=== PATIENT | female | born 1990 | race Caucasian/White ===

== ENCOUNTER 2017-06-16 20:56 | Inpatient (IN) ==
--- OUTSIDE RECORDS SUMMARY | 2017-06-16 21:02 | External Medical Summary | Continuity of Care Document ---
:1990 Author Organization [facility] [employer] [facility] Address [address] [place], [place] [id number] Phone Allergies, Adverse Reactions, Alerts Substance Reaction Severity Status Substance Type Unknown Medications Medication Instructions Dosage Effective Dates Status Comments (start - stop) Vitamin take 1 tablet by Not Available - Active tablet oral route every day Problems Condition Effective Dates (start - stop) Clinical Status Encntr for suprvsn of normal first - preg, third trimester 32 weeks gestation of - Pap Smear Screening, Cervix - Encntr for suprvsn of normal first - preg, first trimester 9 weeks gestation of - Matern care for oth or susp poor fetl - gr, 1st tri, unsp Encntr for suprvsn of normal first - preg, first trimester 13 weeks gestation of - Matern care for oth or susp poor fetl - gr, 2nd tri, unsp 19 weeks gestation of - Abnormal glucose complicating - Encntr for suprvsn of normal first - preg, second trimester 23 weeks gestation of - Encntr for suprvsn of normal first - preg, second trimester 19 weeks gestation of - Encntr for suprvsn of normal first - preg, second trimester 27 weeks gestation of - Encntr for suprvsn of normal first - preg, third trimester 30 weeks gestation of - Encntr for suprvsn of normal first - preg, third trimester 34 weeks gestation of - Procedures Procedure Date 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 Health SO, normal first 7 700 [address], preg, [place], [place], [email or web address] [place] [id number], weeks [facility] gestation of 120, tel:+[address] [place] [address], [id number] , [place]. tel: [phone] [facility] Encntr for Apr- Hernandes In Womens suprvsn of 9-201 Marie. Kelsey RIZZO, normal first 7 700 [address], preg, [place], [place], [email or web address] [place] [id number], weeks [facility] gestation of 120, tel:+21 Byron [phone], [id number] , [place]. tel: [phone] [facility] Mitchellntr for Apr-0 Hernandes Referring In Womens suprvsn of 5-201 Marie. Provider: Kelsey RIZZO, normal first 7 700 Marie Hernandes [address], preg, third Medical K, 700 [place], [place], [email or web address] [facility] [id number], weeks , [facility] [place] gestation of 120, Jeremy 120, tel:+21 Byron [place], [address] [place], [place], [id number]. , [place]. tel: tel: [phone] Associates [facility] Abnormal Dominik-2 Hernandes In Womens glucose 2-201 Marie. Kelsey RIZZO, complicating 7 700 [address], [place], [place], [place] [id number], Jeremy Vargas [place] 120, tel:[phone] Byron [address] [place], [id number] , [place]. tel: [phone] Judie Mitchellntr for Dominik-1 Hernandes In Womens suprvsn of 3- Marie. Health [place], normal first 7 700 [address], preg, second Medical [place], [place], Center [id number], weeks , Jeremy [place] gestation of 120, tel:[phone] Byron [address] [place], [id number] , [place]. tel: [phone] Judie [place] Encntr for May- Hernandes In Womens suprvsn of 7 Marie. Health [place], normal first 7 700 [address], preg, second Medical [place], [place], [email or web address] Center [id number], weeks , Jeremy [place] gestation of 120, tel:+21 Byron [address] [place], [id number] , [place]. tel: [phone] Judie [place] Encntr for Apr- [facility]es [facility] of Marie. Health [place], normal first 7 700 [address], preg, second [place], [place], [email or web address] Center [id number], weeks , Jeremy [place] gestation of 120, tel:+21 Byron [address] [place], [id number] , [place]. tel: [phone] Judie [place] Matern care Apr-1 Hernandes In Womens Ultrasound for oth or Marie. Health [place], susp poor 7 700 [address], fetl grth, [place], [place], 2nd tri, Center [id number], [email or web address] weeks , Jeremy [place] gestation of 120, tel:21 Byron [address] [place], [id number] , [place]. tel: [phone] Judie [place] Matern care Mar- Hernandes In Womens for oth or 0-201 Marie. Health SO, susp poor 7 700 [address], fetl grth, [place], [place], 1st tri, Center [id number], unspEncntr Dr Jeremy [place] for suprvsn 120, tel:[phone] of normal Byron, [id number] first preg, [place], first [id number] , [place]. weeks tel: gestation of [phone] Judie [place] Pap Smear Nov- Hernandes Referring In Womens Screening, 0-201 Marie. Provider: Kelsey RIZZO CervixEncntr 7 700 Marie Hernandes [address], for [facility] Medical K, 700 [place], [place], of [facility] Medical [id number], pregDr, Jeremy Center Dr FERREIRA first 120, Jeremy 120, tel:21 trimester9 Byron [place], [address] weeks [place], gestation of [id number]. , [place]. tel: tel: [phone] Family History Family Member Diagnosis Age At Onset No family history of Pulmonary Embolism Maternal Grandmother Ovarian Cancer No family history of Venous Thrombosis Mother Thyroid Disorder Father Kidney Cancer Paternal Grandmother Breast Cancer Immunizations Vaccine Date Status Comments Tdap completed Source: New Immunization Record Influenza, injectable, completed Source: New Immunization Record quadrivalent, preservative free, 3 yrs or older Payers Payer name Insurance type Covered libertarian ID Authorization(s) Aetna CI [id number] Aetna CI [id number] Aetna CI [id number] Social History Type Description Quantity Date Captured Alcohol Use Details No Caffeine Use Details Unknown Tobacco Use Status Unknown Smoking Status Never smoker Vital Signs Date / Height Weight BMI Pulse Blood Temperature Respiratory Body Head BMI Time: Rate Pressure Rate Surface Circumference percentile Area 155.20 27.4 119/74 2017 lbs 9 mm[Hg] 4:12 kg/m PM eter (2) Chief Complaint And Reason For Visit Unknown Chief Complaint And Reason For Visit Reason For Referral Reason For Referral Unknown Plan Of Care Date Type Action Status Appointment Emily Martell BOOKED Appointment Emily Matrell BOOKED Appointment Emily Martell BOOKED Appointment Emily Martell BOOKED Appointment Emily Martell BOOKED Future Order: Radiology Order Complete OB Ultrasound > 14 Ordered Weeks ([id number]) Date Type Problem Goal Intervention Status Start Date Unknown. History Of Present Illness Encounter Date Complaint History Of Present Illness This patient has no known history of present illness Functional Status Encounter Date Functional Assessment Cognitive Assessment Unknown Medications Administered Medication Instructions Dosage Effective Dates (start - stop) Status Comments Drug Treatment Unknown Instructions Date Instruction Additional Information gestational glucose lab screening indications for ultrasound influenza vaccine environmental / work hazards travel tobacco (ask, advise, assess, assist and arrange) alcohol illicit / recreational drugs use of any medications (including supplements, vitamins, herbs, OTC drugs) smoking counseling domestic violence seat belt use risk factors identified by history anticipated course of care nutrition and weight gain counseling, special diet toxoplasmosis precautions (cats / raw meat) HIV and other routine tests exercise genetic testing new ob handbook Zika virus assessment & precautions dentist, 25-35#
--- OUTSIDE RECORDS SUMMARY | 2017-06-16 21:02 | External Medical Summary | Continuity of Care Document ---
:1990 Author Organization [facility] [employer] [facility] Address [address] [place], [place] [address] Phone Allergies, Adverse Reactions, Alerts Substance Reaction Severity Status Substance Type Unknown Medications Medication Instructions Dosage Effective Dates Status Comments (start - stop) Vitamin take 1 tablet by Not Available - Active tablet oral route every day Problems Condition Effective Dates (start - stop) Clinical Status Encntr for suprvsn of normal first - preg, third trimester 30 weeks gestation of - Pap Smear Screening, [...] gestation of - Abnormal glucose complicating - 19 weeks gestation of - Encntr for suprvsn of normal first - preg, second trimester Encntr for suprvsn of normal first - preg, second trimester 23 weeks gestation of - Encntr for suprvsn of normal first - preg, second trimester 27 weeks gestation of - Encntr for suprvsn of normal first - preg, third trimester 32 weeks gestation of - Procedures Procedure Date Immuniz admnin, 1 vac, sngl/combo 19 Yrs + TDAP VACCINE >7 IM OB Visit No Charge Results Test Name Date and Time Measure Units Reference Range Abnormal Flag Comments Unknown Advance Directives Directive Yes / No Effective Date File Name Unknown Encounters Encounter Practice Location Reason(s) Diagnoses Date Provider Care Team Description For Visit Members [facility] Mitchellntr for Apr-1 Hernandes In Womens suprvsn of 9-201 Marie. Kelsey RIZZO, normal first 7 700 PO [address] preg, third Medical 1522, [facility], weeks gestation Jeremy Vargas, of 120, , [facility] [place], tel:[phone] , [place]. tel: [phone] [facility] Encntr for Asad-0 Hernandes Referring In Womens suprvsn of 5-201 Marie. Provider: Kelsey RIZZO, normal first 7 700 Marie Hernandes PO Box preg, third Medical K, 700 1522, [email or web address] [facility], weeks gestation [facility] [place], of 120, Jeremy 120, , Byron Craig, [facility], [place], tel:[phone]. , [place]. tel: tel: [phone] Associates [facility] Abnormal glucose Dominik-2 Hernandes In Womens complicating 2-201 Marie. Kelsey RIZZO, 7 700 PO [address] Medical [address], [place] [address] [place], 120, , [facility] [place], tel: [phone] , [place]. tel: [phone] [facility] Encntr for Dominik-1 Hernandes In Womens suprvsn of 3-201 Marie. Kelsey RIZZO, normal first 7 700 PO Box preg, second Medical 1522, [email or web address] [facility], weeks gestation Jeremy Vargas, of 120, [id number], [facility] [place], tel:[phone] , [place]. tel: [phone] Judie [place] Encntr for February-1 Hernandes In Womens suprvsn of 7-201 Marie. Health SO, normal first 7 700 PO Box preg, second Medical 1522, [id number] [facility], weeks gestation Jeremy Vargas, of 120, , [place], tel:[phone] , [place]. tel: [phone] Associates Byron 19 weeks Apr-1 Hernandes In Womens gestation of 9- Marie. Health SO, pregnancyEncntr 7 700 PO Box for suprvsn [facility] 1522, normal first [facility], preg, second Jeremy Vargas, trimester 120, , [place], tel:[phone] , [place]. tel: [phone] Associates [facility] Matern care for Apr-1 Hernandes In Womens Ultrasound oth or susp poor 9- Marie. Kelsey RIZZO, fetl grth, 2nd 7 700 PO [address] tri, [email or web address] Medical 1522, weeks gestation [facility], of Jeremy Vargas, 120, , [place], [place], tel:[phone] , [place]. tel: [phone] Judie [place] Matern care for Mar-1 Hernandes In Womens oth or susp poor 0-201 Marie. Health SO, fetl grlauren, 1st 7 700 PO Box tri, unspEncntr Medical 1522, for suprvsn of [facility], normal first Jeremy Vargas, preg, first 120, , [email or web address] [place], weeks gestation [place], tel: of , [place]. tel: [phone] [facility] Pap Smear Fe- Hernandes Referring In Womens Screening, 0-201 Marie. Provider: Health SO, CervixEncntr for 7 700 Marie Hernandes PO Box suprvsn of [facility] K, 700 1522, normal first Center [facility], preg, first , [facility] Dr VELARDE, trimester9 weeks 120, Jeremy 120, [id number], gestation of Byron [place], [place], tel:[phone]. , [place]. tel: tel: [phone] Family History Family Member Diagnosis Age At [...] older Payers Payer name Insurance type Covered green party ID Authorization(s) Aetna CI [id number] Aetna CI [id number] Aetna CI [id number] Social History Type Description Quantity Date Captured Alcohol Use Details No Caffeine Use Details Unknown Tobacco Use Status Unknown Smoking Status Never smoker Vital Signs Date / Height Weight BMI Pulse Blood Temperature Respiratory Body Head BMI Time: Rate Pressure Rate Surface Circumference percentile Area 153.10 27.1 118/74 lbs 2 mm[Hg] 5:45 kg/m PM eter (2) Chief Complaint And Reason For Visit Unknown Chief Complaint And Reason For Visit Reason For Referral Reason For Referral Unknown Plan Of Care Date Type Action Status Appointment Emily Martell BOOKED Appointment Emily Martell BOOKED Appointment Emily Martell BOOKED Appointment Emily Martell BOOKED Appointment Emily Martell BOOKED Appointment Emily Matrell BOOKED Future Order: Radiology Order Complete OB Ultrasound > 14 Ordered Weeks ([id number]) Date Type Problem Goal Intervention Status Start [...] smoking counseling domestic violence seat belt use genetic testing risk factors identified by history anticipated course of care nutrition and weight gain counseling, special diet toxoplasmosis precautions (cats / raw meat) HIV and other routine tests exercise new ob handbook Zika virus assessment & precautions dentist, 25-35#
--- OUTSIDE RECORDS SUMMARY | 2017-06-16 21:02 | External Medical Summary | Continuity of Care Document ---
:1990 Author Organization [facility] [facility] Address [address] [place], [place] [id number] Phone Allergies, Adverse Reactions, Alerts Substance Reaction Severity Status Substance Type Unknown Medications Medication Instructions Dosage Effective Dates Status Comments (start - stop) Vitamin take 1 tablet by Not Available - Active tablet oral route every day Problems Condition Effective Dates (start - stop) Clinical Status Encntr for suprvsn of normal first - preg, third trimester 34 weeks gestation of - Pap Smear Screening, [...] of normal first - preg, third trimester Encounter for screening of - mother 36 weeks gestation of - Encntr for suprvsn of normal first - preg, third trimester 32 weeks gestation of - Encntr for suprvsn of normal first - preg, third trimester 30 weeks gestation of - Procedures Procedure Date OB Visit No Charge Results Test Name Date and Time Measure Units Reference Range Abnormal Flag Comments Unknown Advance Directives Directive Yes / No Effective Date File Name Unknown Encounters Encounter Practice Location Reason(s) Diagnoses Date Provider Care Team Description For Visit Members [facility] Byron Mitchellntr for May-1 Hernandes In Womens suprvsn of normal 6-201 Marie. Health [place], first preg, third 7 700 PO Box trimesterEncounte Medical [address], r for [facility], screening of Jeremy Vargas, [email or web address] weeks 120, , gestation of [facility] [place], tel:[phone] , [place]. tel: [phone] Judie Mitchellntr for May-0 Hernandes In Womens suprvsn of normal 1-201 Marie. Kelsey RIZZO, first preg, third 7 700 PO Box [email or web address] weeks Medical 1522, gestation of [facility], Jeremy Vargas [place], 120, [id number], [place], tel:[phone] , [place]. tel:[phone] Judie Mitchellntr for Apr- Hernandes In Womens suprvsn of normal 9-201 Marie. Kelsey RIZZO, first preg, third 7 700 PO Box [email or web address] weeks Medical 1522, gestation of [facility], Jeremy Vargas [place], 120, [id number], [place], tel:[phone] , [place]. tel:[phone] Judie Mitchellntr for Apr-0 Hernandes Referring In Womens suprvsn of normal 5-201 Marie. Provider: Kelsey [place], first preg, third 7 700 Marie Hernandes [address] [email or web address] weeks Medical K, 700 1522, gestation of [facility], Dr [facility] [place], 120, Jeremy 120, , Byron [place], [place], [place], tel: [phone] [id number]. , [place]. tel: tel: [phone] Associates Byron Abnormal glucose Dominik-2 Hernandes In Womens complicating 2-201 Marie. Health PA, 7 700 PO Box Medical 1522, [facility], Jeremy Vargas, 120, , [facility] [place], tel:[phone] , [place]. tel: [phone] [facility] Encntr for Dominik-1 Hernandes In Womens suprvsn of normal 3-201 Marie. Health PA, first preg, 7 700 PO Box second Medical 1522, [id number] weeks [facility], gestation of Jeremy Vargas, 120, , [facility] [place], tel:[phone] , [place]. tel: [phone] [facility] Encntr for May-1 Hernandes In Womens suprvsn of normal 7-201 Marie. Health PA, first preg, 7 700 PO Box second Medical 1522, weeks [facility], gestation of Jeremy Vargas, 120, , [facility] [place], tel:[phone] , [place]. tel: [phone] [facility] Encntr for Apr-1 Hernandes In Womens suprvsn of normal 9-201 Marie. Health PA, first preg, 7 700 PO Box second Medical 1522, [email or web address] weeks [facility], gestation of Jeremy Vargas, 120, , [facility] [place], tel:[phone] , [place]. tel: [phone] Associates [facility] Matern care for Apr-1 Hernandes In Womens Ultrasound oth or susp poor 9-201 Marie. Health PA, fetl grth, 2nd 7 700 PO Box tri, [email or web address] weeks Medical 1522, gestation of [facility], Jeremy Vargas, 120, , [facility] [place], tel:[phone] , [place]. tel: [phone] Judie [place] Matern care for Dec- Hernandes In Womens oth or susp poor 0-201 Marie. Health SO, fetl grth, 1st 7 700 PO Box tri, unspEncntr Medical 1522, for suprvsn of [facility], normal first Jeremy Vargas, preg, first 120, [id number], [email or web address] weeks [place], gestation of [place], tel: [phone] , [place]. tel: [phone] Judie [place] Pap Smear Hernandes Referring In Womens Screening, 0-201 Marie. Provider: Health SO, CervixEncntr for 7 700 Marie Hernandes PO Box suprvsn of [facility] [place], 700 1522, first preg, first [facility], trimester9 weeks , [facility] Dr VELARDE, gestation of 120, Jeremy 120, [id number], Byron [place], [place], [place], tel: [phone]. , [place]. tel: tel: [phone] Family History Family Member Diagnosis Age At [...] type Covered libertarian ID Authorization(s) Aetna CI [id number] Aetna CI [id number] Aetna CI [id number] Social History Type Description Quantity Date Captured Alcohol Use Details No Caffeine Use Details Unknown Tobacco Use Status Unknown Smoking Status Never smoker Vital Signs Date / Height Weight BMI Pulse Blood Temperature Respiratory Body Head BMI Time: Rate Pressure Rate Surface Circumference percentile Area 157.00 27.8 112/72 -2017 lbs 1 mm[Hg] 3:56 kg/m PM eter (2) Chief Complaint And Reason For Visit Unknown Chief Complaint And Reason For Visit Reason For Referral Reason For Referral Unknown Plan Of Care Date Type Action Status Appointment Emily Martell BOOKED Appointment Emily Martell BOOKED Appointment Emily Martell BOOKED Appointment Emily Martell BOOKED Future Order: Radiology Order Complete OB Ultrasound > 14 Ordered Weeks ([id number]) Date Type Problem Goal Intervention Status Start Date Unknown. History Of Present Illness Encounter Date Complaint History Of Present Illness This patient has no known history of present illness Functional Status Encounter Date Functional Assessment Cognitive Assessment Unknown Medications Administered Medication Instructions Dosage Effective Dates (start - stop) Status Comments Drug Treatment Unknown Instructions Date Instruction Additional Information [facility] Appt card labor signs group B strep screening gestational glucose lab screening indications for ultrasound [...]
[2017-06-16] MEDS ORDERED: MAG-AL + SIM ORAL LIQUID 30ml PO PRN (21:19)
[2017-06-16] MEDS ORDERED: METHYLERGONOVINE 0.2 MG/ML INJECTION IM PRN (21:19)
[2017-06-16] MEDS ORDERED: ACETAMINOPHEN 500 MG TABLET PO PRN (21:19)
[2017-06-16] MEDS ORDERED: CARBOPROST 250 MCG/ML INJECTION IM PRN (21:19)
[2017-06-16] MEDS ORDERED: LIDOCAINE 1% (10mg/ml) 2mL INJ PF SDV ID PRN (21:19)
[2017-06-16] MEDS ORDERED: CALCIUM CARBONATE Chewable 500mg TABLET PO PRN (21:19)
[2017-06-16 21:29] VITALS: BMI 28.3
[2017-06-16] MEDS ORDERED: OXYTOCIN DRIP 30 UNIT/500 ML ML IV PRN (22:27)
[2017-06-16] MEDS ORDERED: D5LR 1,000 ML IV PRN (22:31)
[2017-06-16] MEDS: D5LR 1,000 ML IV PRN (22:46)
[2017-06-17] MEDS: LR 1,000 ML IV SCH ×2 (03:00→07:58)
[2017-06-17] MEDS: D5LR 1,000 ML IV PRN (07:40)
[2017-06-17] MEDS ORDERED: NALOXONE 0.4 MG/ML INJECTION IVP PRN (07:58)
[2017-06-17] MEDS ORDERED: ONDANSETRON 4 MG/2 ML INJECTION IVP PRN (07:58)
[2017-06-17] MEDS ORDERED: DiphenhydrAMINE 50 MG/ML INJECTION IVP PRN (07:58)
[2017-06-17] MEDS ORDERED: ROPIVACAINE 1% 10MG/ML INJ 200 MG, SUFentanil 50 MCG in NS 100 ML EPI PRN (07:58)
--- NOTE | 2017-06-17 07:58 | Anesthesia Preoperative Report ---
Anesthesia Epidural/Spinal Rec - Date and Time Date: 06/17/17 Preoperative Diagnosis: Procedure: Labor Epidural Plan: Epidural - Vital Signs Vital Signs: Temperature 97.9 F 06/16/17 21:40 Pulse Rate 93 06/16/17 21:40 Respiratory Rate 14 06/16/17 21:40 Blood Pressure 124/62 06/16/17 21:40 Pulse Oximetry 99 06/16/17 21:40 /Para: P:0 - Medictaions & Allergies Inpatient Medications: Current Medications Acetaminophen (Tylenol) 500 - 1,000 mg PO Q4H PRN PRN Reason: Pain Al Hydroxide/Mg Hydroxide (Maalox Plus) 30 ml PO Q3H PRN PRN Reason: Indigestion Calcium Carbonate (Tums) 500 - 1,000 mg PO Q2H PRN PRN Reason: Indigestion Carboprost Tromethamine (Hemabate) 250 mcg IM O PRN PRN Reason: .Downtime Dextrose/Lactated Ringer's (Dextrose 5%-Lactated Ringers) 1,000 mls @ 125 mls/ hr IV .Q8H PRN PRN Reason: Labor Last Admin: 06/17/17 07:40 Dose: 123 mls/hr Oxytocin (Pitocin Drip) 30 unit in 500 mls @ 2 mls/hr IV .Q24H PRN; Protocol PRN Reason: Induction/Augmentation Last Admin: 06/16/17 22:45 Dose: 2 mls/hr Dextrose/Lactated Ringer's (Dextrose 5%-Lactated Ringers) 1,000 mls @ 125 mls/ hr IV .Q8H PRN PRN Reason: Labor Lidocaine HCl (Xylocaine-Mpf 1% Vial) 0.2 mg ID O PRN PRN Reason: IV Start Methylergonovine Maleate (Methergine) 0.2 mg IM O PRN Misoprostol (Cytotec) 800 mcg [place] ONCE PRN Allergies/Adverse Reactions: Allergies Allergy/AdvReac Type Severity Reaction Status Date / Time NKDA Allergy Uncoded 06/16/17 21:38 - Home Medications Home Medications: Home Medications Medication Instructions Recorded Confirmed Type Vitamins 06/04/17 History - Surgical History Anesthesia Reactions: None Hx Family Anesthesia Reaction: No History of Motion Sickness: No - Social History Second Hand Exposure: No Substance Use Type: does not use Alcohol Intake Frequency: does not drink - Pertinent Findings Lab Data: CBC and BMP 06/16/17 21:35 EKG Rhythm: Normal Sinus Rhythm - Physical Exam Respiratory Exam: lungs clear Cardiovascular Exam: regular rate and rhythm, no murmur - Airway Assessment Mallampati Score: II TMD: 3 Fingerbreadths Neck Extension: good Overall Assessment: no airway concerns - ASA ASA Score: 2 - Discussion Discussion: Discussed risks/options/alternatives of anesthesia and questions answered. Patient consents. Nursing pain assessment noted. Anesthesia Discussion: spouse Attestation Statement: Prior to the delivery of any anesthetic medication, I examined the patient, developed the plan, obtained the patient's consent and discussed the risk and benefits of the procedure with the patient/guardian.
[2017-06-17] MEDS ORDERED: CALCIUM CARBONATE Chewable 500mg TABLET PO PRN (12:50)
[2017-06-17] MEDS ORDERED: MAG-AL + SIM ORAL LIQUID 30ml PO PRN (12:50)
[2017-06-17] MEDS ORDERED: ACETAMINOPHEN 500 MG TABLET PO PRN (12:50)
[2017-06-17] MEDS ORDERED: HYDROCODONE/APAP 5mg/325mg TABLET PO PRN (12:50)
[2017-06-17] MEDS ORDERED: SALINE FLUSH 10ml SYRINGE IVF PRN (12:50)
[2017-06-17] MEDS ORDERED: HYDROCORTISONE 2.5% CREAM 30gm RECTALLY PRN (12:50)
[2017-06-17] MEDS ORDERED: DiphenhydrAMINE 25 MG CAPSULE PO PRN (12:50)
[2017-06-17] MEDS ORDERED: OXYTOCIN DRIP 30 UNIT/500 ML ML IV SCH (12:50)
[2017-06-17] MEDS: IBUPROFEN 800 MG TABLET PO SCH (16:23)
[2017-06-17 16:33] VITALS: RESP 16
[2017-06-18] MEDS: IBUPROFEN 800 MG TABLET PO SCH ×2 (00:11→08:15)
[2017-06-18 06:25] VITALS: O2SAT 100
--- NOTE | 2017-06-18 06:52 | Labor and Delivery Note ---
DELIVERY NOTE This is a delivery note for a patient of Dr. Lopez. She was admitted on 2016 and it is now 06/17/2017. Mrs. Martell progressed very well in first stage of labor. She began to push with excellent effort at the complete and +2 presentation. She pushed for a short time, delivering the head in the OA position. Baby was bulb suctioned on the perineum. There was no evidence of nuchal cord. With one further push, she delivered the baby in total. Baby was then further bulb suctioned and placed on mother's abdomen for care by the nurses. After almost 3 minutes the cord was doubly clamped and cut. The baby was a liveborn female with Apgars of 8 and 9. Weight has not yet been obtained as baby is still skin- to-skin with mother. After a few moments the placenta delivered spontaneously, intact. It had a normal configuration and normal-appearing three-vessel cord. There was a second-degree midline laceration that was repaired in the usual fashion. It extended a bit into the right vaginal sidewall, so this was repaired with a running nonlocking 2-0 Vicryl along with the midline. Total blood loss was approximately 400 ml. At the time of this dictation mother and baby are doing well. [facility] SYSTEM[facility]lic[facility]
--- NOTE | 2017-06-18 08:41 | Anesthesia Postoperative Note ---
- Date and Time Date: 06/18/17 Time: 08:41 - Status Patient Participated in Evaluation: Patient Participated in Person Vital Signs: Temperature 97.9 F 06/18/17 06:10 Pulse Rate 77 06/18/17 06:10 Respiratory Rate 16 06/18/17 06:10 Blood Pressure 114/71 06/18/17 06:10 Pulse Oximetry 100 06/18/17 06:10 Respiratory Function: Airway Patent Cardiovascular Function: Regular Pulse EKG Rhythm: Normal Sinus Rhythm Mental Status: Alert and Oriented Pain Intensity: 0 Hydration: Taking PO Fluids Complications During Recover: None Apparent - Follow-Up Instructions Instructions: Per Surgeon
--- NOTE | 2017-06-18 08:54 | OB/GYN Progress Note ---
OB-PP Progress Note - General PPD1 Maternal Group B Strep: Negative Maternal blood type: O+ Maternal Rubella Status: Immune - Subjective Date: 06/18/17 Lochia: Minimal Pain: contolled Voiding: voiding - Objective Vital Signs: Last Vital Signs Temp 97.9 F 06/18/17 06:10 Pulse 77 06/18/17 06:10 Resp 16 06/18/17 06:10 BP 114/71 06/18/17 06:10 Pulse Ox 100 06/18/17 06:10 Urine Output: good General: alert and oriented Abdomen: fundus firm, non-tender Extremities: non-tender - Assessment Assessment: - Plan Plan: routine care, discharge home, continue PNV
--- NOTE | 2017-06-18 08:57 | Discharge Instructions ---
Discharge Plan - Med Rec/Dispo Prescriptions: New Hydrocodone/APAP 5/325 [[place] 5/325] 1 - 2 tab PO Q4H PRN #30 tab PRN Reason: Pain Ibuprofen [Motrin] 800 mg PO Q8H #30 tab Continue Vitamins Discharge Instructions/Outpatient Orders: Final Provider Discharge Instructions Location: Determined By Patient - Disposition 01 Discharged Home, Self-Care
[2017-06-18] MEDS ORDERED: PRENATAL VITAMIN TABLET PO SCH (09:00)
[2017-06-18] MEDS ORDERED: DOCUSATE CALCIUM 240 MG CAPSULE PO SCH (09:00)
[2017-06-18 10:58] VITALS: BP 107/63; PULSE 70; TEMP 98.3
== END 2017-06-18 14:20 | disposition home or self-care (01) | DRG 775 ==
LOC: OBOBS 20:56 → MC 20:56
PROVIDERS: ADMIT Obstetrics & Gynecology; ATTEND Obstetrics & Gynecology